=== PATIENT | female | born 1940 | race Caucasian/White ===

== ENCOUNTER 2017-07-21 14:26 | Emergency (ER) | payer OTHER ==
[~2017-07-21] VITALS: Ht 162.6 cm; Wt 70.0 kg
[2017-07-21] MEDS ORDERED: TETANUS, DIPHTHERIA, PERTUSSIS VAC/PF 0.5ML (>7YR OLD) IM ONE (15:15)
[2017-07-21 17:55] VITALS: BP 119/70
== END 2017-07-21 17:56 | disposition home or self-care (01) ==
LOC: ER 14:26
DX: S00.03XA Contusion of scalp, initial encounter (principal); M54.9 Dorsalgia, unspecified; E11.9 Type 2 diabetes mellitus without complications; I10 Essential (primary) hypertension; W01.0XXA Fall on same level from slipping, tripping and stumbling without subsequent striking against object, initial encounter; Y93.89 Activity, other specified; Y99.8 Other external cause status; Y92.89 Other specified places as the place of occurrence of the external cause
CPT/HCPCS: 70450; 72125; 72128; 72131; 90471; 90715; 99284; Z7610